=== PATIENT | male | born 1945 | race Caucasian/White ===

== ENCOUNTER 2018-04-17 02:59 | Outpatient (CLI) | payer MEDICARE, BC, SELFPAY ==
[2018-04-18 18:08] LABS: PSA, Screening 7.9 ng/ml (0-6.5)
== END 2018-04-17 03:00 ==
PROVIDERS: PCP Family Medicine; Visit Provider Family Medicine
DX: Z12.5 Encounter for screening for malignant neoplasm of prostate (principal); N40.0 Benign prostatic hyperplasia without lower urinary tract symptoms
CPT/HCPCS: 36415; 84153

== ENCOUNTER 2023-06-16 20:36 | Outpatient (CLI) | payer MEDICARE, BC, SELFPAY ==
[2023-06-16 16:31] LABS: Hemoglobin A1C 6.5 % (<5.7)
== END 2023-06-16 20:37 | disposition home or self-care (01) ==
LOC: LBO 20:37
PROVIDERS: PCP Family Medicine; Visit Provider Family Medicine
DX: E11.51 Type 2 diabetes mellitus with diabetic peripheral angiopathy without gangrene (principal)
CPT/HCPCS: 36415; 83036